=== PATIENT | male | born 1995 | race Caucasian/White ===

== ENCOUNTER 2018-05-17 20:42 | Emergency (ER) | payer OTHER, SELFPAY ==
[2018-05-17 20:43] VITALS: BP 143/81; PULSE 86; RESP 20; TEMP 36.8; O2SAT 98; BMI 22.3
[2018-05-17] MEDS: Tetracaine 0.5% Ophthalmic Bottle 1 DRP EACH EYE (23:02)
[2018-05-17] MEDS: Fluorescein 1 MG STRIP 1 STRIP EACH EYE (23:02)
--- NOTE | 2018-05-17 23:05 | ED.DCSUM_ITS ---
- ER Visit Summary Date of Service: 05/17/18 Chief Complaint: Foreign body right eye History of Present Illness: The patient is a 22 M who presents with foreign body right eye. He was scraping piece of machinery. He believes a piece of metal went into the eye. There is no history of metal pounding on metal. He denies double vision, blurred vision loss of vision. He does report mild light sensitivity. He has no other complaints. Physical Examination: Visual acuity noted and unremarkable. Pupils equal round reactive. Extraocular muscle intact. Sclerae anicteric. There is no subconjunctival hemorrhage. Conjunctive is not injected. Anterior chamber is normal. Funduscopic exam is normal. I was not touch tetracaine and stained with foreseen bilaterally. Slit lamp exam reveals a metallic foreign body with rust ring 4:00 4 mm in limbal border. There is no flare or cells noted. Test Results: None Emergency Department Course and Treatment: Removal of metallic foreign body with rust ring using ophthalmic bur Treatment Plan: Symptomatic and appropriate home-going instructions Disposition: Discharged home in stable improved condition and outpatient follow- up as needed Impression: Metallic foreign body with rust ring right cornea with no residual initial encounter This note was generated with [employer] dictation software. It may contain incorrect words, spelling, and punctuation that were not noted in review of the chart prior to signing ED Disposition - Plan for ED Patient: Disposition: Home or Assisted Living Chief Complaint: Eye Problem Instructions: ED Foreign Body Cornea Referrals: Care Physician,No Primary [Primary Care Provider] - Corporate,Care [GROUP OF PHYSICIANS] - As Needed
== END 2018-05-17 23:23 | disposition home or self-care (01) ==
PROVIDERS: Emergency Provider Emergency Medicine
DX: T15.01XA Foreign body in cornea, right eye, initial encounter (principal); S00.251A Superficial foreign body of right eyelid and periocular area, initial encounter; W45.8XXA Other foreign body or object entering through skin, initial encounter; Y93.9 Activity, unspecified; Y92.89 Other specified places as the place of occurrence of the external cause; Y99.0 Civilian activity done for income or pay
CPT/HCPCS: 99281